=== PATIENT | male | born 1960 | race African-American/Black ===

== ENCOUNTER 2017-07-29 12:00 | Inpatient (IN) | payer BC ==
[2017-07-29 12:44] VITALS: BMI 29.3
--- NOTE | 2017-07-29 12:59 | HP ---
CIWA Score - CIWA Score Nausea/Vomitin Muscle Tremors: 3 Anxiety: 3 Agitation: 3 Paroxysmal Sweats: 2 Orientation: 0-Oriented Tacttile Disturbances: 2-Mild Itch/Numbness/Burn Auditory Disturbances: 2-Mild Harshness/Frighten Visual Disturbances: 1-Very Mild Sensitivity Headache: 2-Mild CIWA-Ar Total Score: 21 Admission ROS BHS - HPI Chief Complaint: I NEED HELP TO STOP DRINKING ALCOHOL AND COCAINE Allergies/Adverse Reactions: Allergies Allergy/AdvReac Type Severity Reaction Status Date / Time No Known Allergies Allergy Verified 07/29/17 12:52 History of Present Illness: THIS 57 YEARS OLD MALE WITH ALCOHOL AND COCAINE DEPENDENCE,WITHDRAWAL SYMPTOM, SEEKING DETOX,LAST TREATMENT [facility] 01/01/16 TO 01/05/16 HTN,TYPE 2 DM,LOW BACK PAIN,HYPERCHOLESTEROLEMIA DEPRESSION NICOTINE DEPENDENCE LONGEST PERIOD OF SOBRIETY 2 YEARS S/P BUNION SURGERY OF RIGHT FOOT IN 06/13 - Ebola screening Have you traveled outside of the country in the last 21 days: No (N) Have you had contact with anyone from an Ebola affected area: No Have you been sick,other than usual withdrawal symptoms: No Do you have a fever: No - Review of Systems Constitutional: Loss of Appetite, Malaise, Night Sweats, Changes in sleep, Weakness, Unintentional Wgt. Loss EENT: reports: Nose Congestion Respiratory: reports: No Symptoms reported Cardiac: reports: No Symptoms Reported GI: reports: Diarrhea, Nausea, Vomiting, Abdominal cramping : reports: No Symptoms Reported Musculoskeletal: reports: Back Pain, Muscle Pain Integumentary: reports: Dryness Neuro: reports: Headache, Tremors Endocrine: reports: No Symptoms Reported Hematology: reports: No Symptoms Reported Psychiatric: reports: Depressed Patient History - Patient Medical History Hx Anemia: No Hx Asthma: No Hx Chronic Obstructive Pulmonary Disease (COPD): No Hx Cancer: No Hx Cardiac Disorders: No Hx Congestive Heart Failure: No Hx Hypertension: Yes (LISINOPRIL & HCTZ) Hx Hypercholesterolemia: Yes (NO MEDS) Hx Pacemaker: No HX Cerebrovascular Accident: No Hx Seizures: No Hx Dementia: No Hx Diabetes: Yes (Type II) Hx Gastrointestinal Disorders: No Hx Liver Disease: No Hx Genitourinary Disorders: No Hx Sexually Transmitted Disorders: No Hx Renal Disease (ESRD): No Hx Thyroid Disease: No Hx Human Immunodeficiency Virus (HIV): No Hx Hepatitis C: No Hx Depression: No Hx Suicide Attempt: No Hx Bipolar Disorder: No Hx Schizophrenia: No Other Medical History: NO SUICIDAL,NO HOMICIDAL - Patient Surgical History Past Surgical History: Yes Other Surgical History: L foot bunionectomy Anesthesia Reaction: No - PPD History Previous Implant?: Yes Documented Results: Negative w/o proof Implanted On Prior R Admission?: Yes Date: 01/03/16 PPD to be Administered?: Yes - Smoking Cessation Smoking history: Current every day smoker Have you smoked in the past 12 months: Yes Aproximately how many cigarettes per day: 20 Hx Chewing Tobacco Use: No Initiated information on smoking cessation: Yes 'Breaking Loose' booklet given: 07/29/17 - Substance & Tx. History Hx Alcohol Use: Yes Hx Substance Use: Yes Substance Use Type: Alcohol, Cocaine Hx Substance Use Treatment: Yes (01/01/16 TO 01/05/16) - Substances Abused Alcohol Route: Oral Frequency: Daily Amount used: 1 QT OF VODKA Age of first use: 24 Date of Last Use: 07/29/17 Cocaine Route: Inhalation Frequency: Daily Amount used: $100 Age of first use: 24 Date of Last Use: 07/28/17 Family Disease History - Family Disease History Family Disease History: Heart Disease: Father (HTN), Mother (HTN), Brother (HTN) Admission Physical Exam S - Vital Signs Vital Signs: Vital Signs - 24 hr 07/29/17 12:41 Temperature 97.2 F L Pulse Rate 92 H Respiratory 20 Rate Blood Pressure 130/74 - Physical General Appearance: Yes: Moderate Distress, Tremorous, Irritable, Sweating, Anxious HEENTM: Yes: SHAE, Nasal Congestion Respiratory: Yes: Lungs Clear, Normal Breath Sounds, No Respiratory Distress Neck: Yes: Within Normal Limits, Supple, Trachea in good position Breast: Yes: Within Normal Limits Cardiology: Yes: Within Normal Limits, Regular Rhythm, Regular Rate, S1, S2 Abdominal: Yes: Within Normal Limits, Normal Bowel Sounds, Non Tender, Flat, Soft Genitourinary: Yes: Within Normal Limits Back: Yes: Muscle Spasm Musculoskeletal: Yes: full range of Motion, Back pain, Muscle Pain Extremities: Yes: Within Normal Limits, Normal Range of Motion, Tremors, Other ( S/P BUNION SURGERY OF RIGHT FOOT) 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 NML intact, Alert, Motor Strength 5/5 Integumentary: Yes: Dry Lymphatic: Yes: Within Normal Limits - Diagnostic (1) Alcohol dependence with uncomplicated withdrawal Current Visit: Yes Status: Acute (2) Cocaine dependence, uncomplicated Current Visit: Yes Status: Acute (3) HTN (hypertension) Current Visit: No Status: Acute Qualifiers: Hypertension type: essential hypertension Qualified Code(s): I10 - Essential (primary) hypertension (4) Type II diabetes mellitus Current Visit: No Status: Acute Qualifiers: Diabetes mellitus complication status: without complication Diabetes mellitus halfway insulin use: without halfway use Qualified Code(s): E11.9 - Type 2 diabetes mellitus without complications (5) Weight loss Current Visit: Yes Status: Acute (6) Depression Current Visit: Yes Status: Acute (7) Nicotine dependence Current Visit: Yes Status: Chronic Cleared for Admission S - Detox or Rehab [facility] Level of Care: Medically Managed Detox Regimen/Protocol: Librium S Breath Alcohol Content Breath Alcohol Content: 0.009 Urine Drug Screen - Results Drug Screen Negative: No Urine Drug Screen Results: CHRIS-Cocaine
[2017-07-29] MEDS ORDERED: IBUPROFEN 400 MG TABLET (FP) PO PRN (13:15)
[2017-07-29] MEDS ORDERED: guaiFENesin/D-METHORPHAN HB 10 ML UNIT-DOSE CUPS PO PRN (13:15)
[2017-07-29] MEDS ORDERED: chlordiazePOXIDE HCL 25 MG CAPSULE PO PRN (13:15)
[2017-07-29] MEDS ORDERED: MENTHOL/PHENOL 1 EACH UD MM PRN (13:15)
[2017-07-29] MEDS ORDERED: P-EPHED 60MG/TRIPROLIDI 2.5MG TABLET PO PRN (13:15)
[2017-07-29] MEDS ORDERED: MAGNESIUM CITRATE 300 ML BOTTLE PO PRN (13:15)
[2017-07-29] MEDS ORDERED: MAGNESIUM HYDROX 2400MG/30ML ORAL SUSPENSION 30 ML CUP PO PRN (13:15)
[2017-07-29] MEDS ORDERED: MAG HYDROX/AL HYDROX/SIMETH 30 ML UNIT-DOSE CUP PO PRN (13:15)
[2017-07-29] MEDS ORDERED: NICOTINE POLACRILEX 2 MG GUM BUC PRN (13:15)
[2017-07-29] MEDS ORDERED: LOPERAMIDE HCL 2 MG CAPSULE PO PRN (13:15)
[2017-07-29] MEDS ORDERED: hydrOXYzine PAMOATE 50 MG CAPSULE (FP) PO PRN (13:15)
[2017-07-29] MEDS ORDERED: ACETAMINOPHEN 325 MG TABLET (FP) PO PRN (13:15)
[2017-07-29] MEDS ORDERED: chlordiazePOXIDE HCL 25 MG CAPSULE PO ONE (13:35)
[2017-07-29] MEDS: GABAPENTIN 300 MG CAPSULE (FP) PO SCH ×2 (14:36→22:21)
[2017-07-29] MEDS: NICOTINE 21 MG/24 HOURS TOPICAL PATCH TD SCH (14:37)
--- NOTE | 2017-07-29 15:47 | CONSULT ---
[facility] Psychiatric Consult - Data Date of interview: 07/29/17 Admission source: [facility] Identifying data: Pt. is a 57 year old male, father of three, and currently unemployed. This is patient's first admission to [facility]. Pt. admitted to for alcohol and cocaine dependence. Substance Abuse History: Following information confirmed with Mr. Hu: Smoking Cessation. Smoking history: Current every day smoker. Have you smoked in the past 12 months: Yes. Aproximately how many cigarettes per day: 20. Hx Chewing Tobacco Use: No. Initiated information on smoking cessation: Yes. ' Breaking Loose' booklet given: 07/29/17. - Substance & Tx. History. Hx Alcohol Use: Yes. Hx Substance Use: Yes. Substance Use Type: Alcohol, Cocaine. Hx Substance Use Treatment: Yes (01/01/16 TO 01/05/16). - Substances Abused. Alcohol. Route: Oral. Frequency: Daily. Amount used: 1 QT OF VODKA. Age of first use: 24. Date of Last Use: 07/29/17. Cocaine. Route: Inhalation. Frequency: Daily. Amount used: $100. Age of first use: 24. Date of Last Use: 07/28/17 Medical History: Hypertension, hypercholesterolemia, diabetes. Psychiatric History: Pt. denies h/o psychiatric hospitalizations and suicide attempts. Pt reports h/o outpatient care in 2017 at [facility] outpatient care services but reports not seeing a psychiatrist in approximately six months. States he was prescribed medication for his "anxiety and depression" but is unable to recall the medications. Pt. denies suicidial and homicidal ideation. Physical/Sexual Abuse/Trauma History: Denies. Mental Status Exam - Mental Status Exam Alert and Oriented to: Time, Place, Person Cognitive Function: Good Patient Appearance: Well Groomed Mood: Hopeful Affect: Appropriate Patient Behavior: Appropriate, Cooperative Speech Pattern: Clear, Appropriate Voice Loudness: Normal Thought Process: Goal Oriented Thought Disorder: Not Present Hallucinations: Denies Suicidal Ideation: Denies Homicidal Ideation: Denies Insight/Judgement: Poor Sleep: Poorly Appetite: Fair Muscle strength/Tone: Normal Gait/Station: Normal Psychiatric Findings - Problem List ([place] 1, 2,3) (1) Insomnia Current Visit: Yes Status: Acute (2) Nicotine dependence Current Visit: Yes Status: Chronic (3) Alcohol dependence with uncomplicated withdrawal Current Visit: Yes Status: Acute (4) Cocaine dependence, uncomplicated Current Visit: Yes Status: Acute - Initial Treatment Plan Initial Treatment Plan: Psychoeducation provided. Detoxification in progress. Ambien 10mg qhs prn ordered for insomnia. Benefits and side effects (sleep walking) discussed. Verbal consent given. Will continue to monitor patient.
[2017-07-29] MEDS: chlordiazePOXIDE HCL 25 MG CAPSULE PO SCH ×2 (17:34→22:20)
[2017-07-29 18:11] LABS: URINE APPEARANCE CLEAR; URINE BILIRUBIN NEGATIVE (NEGATIVE); URINE BLOOD NEGATIVE (NEGATIVE); URINE COLOR STRAW; URINE GLUCOSE (UA) NEGATIVE (NEGATIVE); URINE KETONE NEGATIVE (NEGATIVE); URINE LEUK ESTERASE NEGATIVE (NEGATIVE); URINE NITRITE NEGATIVE (NEGATIVE); URINE PROTEIN NEGATIVE (NEGATIVE); URINE UROBILINOGEN NEGATIVE mg/dL (0.2-1.0)
[2017-07-29] MEDS: THIAMINE HCL 100 MG TABLET (FP) PO SCH (22:21)
[2017-07-29] MEDS: ZOLPIDEM TARTRATE 10 MG TABLET (PARK CARE ONLY) PO PRN (22:22)
[2017-07-30] MEDS: chlordiazePOXIDE HCL 25 MG CAPSULE PO SCH ×4 (05:06→22:05)
[2017-07-30] MEDS: GABAPENTIN 300 MG CAPSULE (FP) PO SCH ×3 (05:07→22:05)
[2017-07-30 09:56] LABS: HEMATOCRIT 46.8 % (35.4-49); MCH 30.5 pg (25.7-33.7); MCHC 32.1 g/dl (32.0-35.9); MEAN PLT VOLUME 8.7 fl (7.5-11.1); PLATELET COUNT 239 K/MM3 (134-434); RBC 4.93 M/mm3 (4.00-5.60); RDW 14.3 % (11.9-15.9); WHITE BLOOD COUNT 4.2 K/mm3 (4.0-10.0)
[2017-07-30 10:13] LABS: ALBUMIN 3.9 g/dl (3.4-5.0); ANION GAP 7 (8-16); BLOOD UREA NITROGEN 11 mg/dL (7-18); CALCIUM 8.6 mg/dL (8.5-10.1); CHLORIDE 103 mmol/L (98-107); CO2 29 mmol/L (21-32); GLUCOSE,RANDOM 109 mg/dL (74-106); POTASSIUM 3.7 mmol/L (3.5-5.1); SODIUM 139 mmol/L (136-145)
[2017-07-30 10:18] LABS: ALK PHOS 70 U/L (45-117); BILIRUBIN,TOTAL 0.8 mg/dL (0.2-1.0); CREATININE 1.1 mg/dL (0.7-1.3); SGOT/AST 20 U/L (15-37); SGPT/ALT 21 U/L (12-78); TOT PROT 7.4 g/dl (6.4-8.2)
--- NOTE | 2017-07-30 10:18 | EKG ---
Test Reason : Blood Pressure : / mmHG Vent. Rate : 077 BPM Atrial Rate : 077 BPM P-R Int : 132 ms QRS Dur : 088 ms QT Int : 380 ms P-R-T Axes : 046 040 -10 degrees QTc Int : 430 ms NORMAL SINUS RHYTHM NONSPECIFIC T WAVE ABNORMALITY ABNORMAL ECG NO PREVIOUS ECGS AVAILABLE Confirmed by JR BLANCHARD MD ([id number]) on 07/30/2017 10:17:37 AM Referred By: Confirmed By:JR BLANCHARD MD
[2017-07-30] MEDS: OXYMETAZOLINE 0.05% NASAL SOLUTION 15 ML BOTTLE NS PRN (10:37)
[2017-07-30] MEDS: PRENATAL VITAMINS W/ FOLIC ACID TABLET (FP) PO SCH (10:37)
[2017-07-30] MEDS: CELECOXIB 200 MG CAPSULE PO SCH (10:37)
[2017-07-30] MEDS: ASPIRIN 81 MG CHEWABLE TABLETS PO SCH (10:37)
[2017-07-30] MEDS: LISINOPRIL 20 MG TABLET (FP) PO SCH (10:37)
[2017-07-30] MEDS: HYDROCHLOROTHIAZIDE 25 MG TABLET (FP) PO SCH (10:37)
[2017-07-30] MEDS: NICOTINE 21 MG/24 HOURS TOPICAL PATCH TD SCH (10:38)
--- NOTE | 2017-07-30 14:51 | PN ---
S CIWA - CIWA Score Nausea/Vomitin-No Nausea/No Vomiting Muscle Tremors: 4-Moderate,w/Arms Extend Anxiety: 3 Agitation: 1-Slight > Activity Paroxysmal Sweats: 3 Orientation: 0-Oriented Tacttile Disturbances: 2-Mild Itch/Numbness/Burn Auditory Disturbances: 0-None Visual Disturbances: 0-None Headache: 3-Moderate CIWA-Ar Total Score: 16 BHS Progress Note (SOAP) Subjective: Tremors, H/A, Body Aches, Sweating. Objective: PT. A & O X 3, OBSERVED AMBULATING ON UNIT. NO ACUTE DISTRESS. PT. DENIES CHEST PAIN. 07/30/17 14:50 Vital Signs Temperature 96.4 F L 07/30/17 13:13 Pulse Rate 80 07/30/17 13:13 Respiratory Rate 18 07/30/17 13:13 Blood Pressure 124/81 07/30/17 13:13 O2 Sat by Pulse Oximetry (%) Laboratory Tests 07/29/17 07/29/17 07/29/17 13:05 16:25 17:00 WBC RBC Hgb Hct MCV MCH MCHC RDW Plt Count MPV Sodium Potassium Chloride Carbon Dioxide Anion Gap BUN Creatinine Creat Clearance w eGFR POC Glucometer 128 144 Random Glucose Calcium Total Bilirubin AST ALT Alkaline Phosphatase Total Protein Albumin Urine Color Straw Urine Appearance Clear Urine pH 6.0 Ur Specific [place] 1.009 Urine Protein Negative Urine Glucose (UA) Negative Urine Ketones Negative Urine Blood Negative Urine Nitrite Negative Urine Bilirubin Negative Urine Urobilinogen Negative Ur Leukocyte Esterase Negative RPR Titer 07/30/17 07/30/17 07/30/17 05:08 06:00 06:00 WBC 4.2 RBC 4.93 Hgb 15.0 Hct 46.8 MCV 95.0 MCH 30.5 MCHC 32.1 RDW 14.3 Plt Count 239 MPV 8.7 Sodium 139 Potassium 3.7 Chloride 103 Carbon Dioxide 29 Anion Gap 7 L BUN 11 Creatinine 1.1 Creat Clearance w eGFR > 60 POC Glucometer 110 Random Glucose 109 H Calcium 8.6 Total Bilirubin 0.8 D AST 20 D ALT 21 Alkaline Phosphatase 70 D Total Protein 7.4 Albumin 3.9 D Urine Color Urine Appearance Urine pH Ur Specific [place] Urine Protein Urine Glucose (UA) Urine Ketones Urine Blood Urine Nitrite Urine Bilirubin Urine Urobilinogen Ur Leukocyte Esterase RPR Titer 07/30/17 06:00 WBC RBC Hgb Hct MCV MCH MCHC RDW Plt Count MPV Sodium Potassium Chloride Carbon Dioxide Anion Gap BUN Creatinine Creat Clearance w eGFR POC Glucometer Random Glucose Calcium Total Bilirubin AST ALT Alkaline Phosphatase Total Protein Albumin Urine Color Urine Appearance Urine pH Ur Specific [place] Urine Protein Urine Glucose (UA) Urine Ketones Urine Blood Urine Nitrite Urine Bilirubin Urine Urobilinogen Ur Leukocyte Esterase RPR Titer Nonreactive LABS NOTED. 07/30/17 14:50 Assessment: 07/30/17 14:50 WITHDRAWAL SYMPTOMS. Plan: CONTINUE DETOX.
[2017-07-30] MEDS: THIAMINE HCL 100 MG TABLET (FP) PO SCH (22:05)
[2017-07-30] MEDS: ZOLPIDEM TARTRATE 10 MG TABLET (PARK CARE ONLY) PO PRN (22:05)
[2017-07-31] MEDS: GABAPENTIN 300 MG CAPSULE (FP) PO SCH ×3 (05:01→22:06)
[2017-07-31] MEDS: chlordiazePOXIDE HCL 25 MG CAPSULE PO SCH ×2 (05:01→10:05)
[2017-07-31] MEDS: LISINOPRIL 20 MG TABLET (FP) PO SCH (10:05)
[2017-07-31] MEDS: ASPIRIN 81 MG CHEWABLE TABLETS PO SCH (10:05)
[2017-07-31] MEDS: HYDROCHLOROTHIAZIDE 25 MG TABLET (FP) PO SCH (10:05)
[2017-07-31] MEDS: PRENATAL VITAMINS W/ FOLIC ACID TABLET (FP) PO SCH (10:05)
[2017-07-31] MEDS: NICOTINE 21 MG/24 HOURS TOPICAL PATCH TD SCH (10:06)
[2017-07-31] MEDS: CELECOXIB 200 MG CAPSULE PO SCH (10:06)
[2017-07-31] MEDS: OXYMETAZOLINE 0.05% NASAL SOLUTION 15 ML BOTTLE NS PRN (15:22)
--- NOTE | 2017-07-31 15:38 | PN ---
[facility] CIWA - CIWA Score Nausea/Vomitin-No Nausea/No Vomiting Muscle Tremors: 2 Anxiety: 3 Agitation: 3 Paroxysmal Sweats: 3 Orientation: 0-Oriented Tacttile Disturbances: 0-None Auditory Disturbances: 2-Mild Harshness/Frighten Visual Disturbances: 2-Mild Sensitivity Headache: 0-None Present CIWA-Ar Total Score: 15 S Progress Note (SOAP) Subjective: Sweating, Tremors, Fatigue, Interrupted Sleep. Objective: PT. A & O X 3, OBSERVED AMBULATING ON UNIT. NO ACUTE DISTRESS. 07/31/17 15:36 Vital Signs Temperature 97.6 F 07/31/17 13:28 Pulse Rate 80 07/31/17 13:28 Respiratory Rate 18 07/31/17 13:28 Blood Pressure 123/87 07/31/17 13:28 O2 Sat by Pulse Oximetry (%) Laboratory Tests 07/29/17 07/29/17 07/29/17 13:05 16:25 17:00 WBC RBC Hgb Hct MCV MCH MCHC RDW Plt Count MPV Sodium Potassium Chloride Carbon Dioxide Anion Gap BUN Creatinine Creat Clearance w eGFR POC Glucometer 128 144 Random Glucose Calcium Total Bilirubin AST ALT Alkaline Phosphatase Total Protein Albumin Urine Color Straw Urine Appearance Clear Urine pH 6.0 Ur Specific [place] 1.009 Urine Protein Negative Urine Glucose (UA) Negative Urine Ketones Negative Urine Blood Negative Urine Nitrite Negative Urine Bilirubin Negative Urine Urobilinogen Negative Ur Leukocyte Esterase Negative RPR Titer 07/30/17 07/30/17 07/30/17 05:08 06:00 06:00 WBC 4.2 RBC 4.93 Hgb 15.0 Hct 46.8 MCV 95.0 MCH 30.5 MCHC 32.1 RDW 14.3 Plt Count 239 MPV 8.7 Sodium 139 Potassium 3.7 Chloride 103 Carbon Dioxide 29 Anion Gap 7 L BUN 11 Creatinine 1.1 Creat Clearance w eGFR > 60 POC Glucometer 110 Random Glucose 109 H Calcium 8.6 Total Bilirubin 0.8 D AST 20 D ALT 21 Alkaline Phosphatase 70 D Total Protein 7.4 Albumin 3.9 D Urine Color Urine Appearance Urine pH Ur Specific [place] Urine Protein Urine Glucose (UA) Urine Ketones Urine Blood Urine Nitrite Urine Bilirubin Urine Urobilinogen Ur Leukocyte Esterase RPR Titer 07/30/17 07/30/17 07/31/17 06:00 16:14 05:00 WBC RBC Hgb Hct MCV MCH MCHC RDW Plt Count MPV Sodium Potassium Chloride Carbon Dioxide Anion Gap BUN Creatinine Creat Clearance w eGFR POC Glucometer 130 110 Random Glucose Calcium Total Bilirubin AST ALT Alkaline Phosphatase Total Protein Albumin Urine Color Urine Appearance Urine pH Ur Specific [place] Urine Protein Urine Glucose (UA) Urine Ketones Urine Blood Urine Nitrite Urine Bilirubin Urine Urobilinogen Ur Leukocyte Esterase RPR Titer Nonreactive LABS NOTED. Assessment: 07/31/17 15:37 WITHDRAWAL SYMPTOMS. Plan: CONTINUE DETOX.
[2017-07-31] MEDS: chlordiazePOXIDE 5 MG CAPSULE PO SCH ×2 (17:45→22:07)
[2017-07-31] MEDS: THIAMINE HCL 100 MG TABLET (FP) PO SCH (22:06)
[2017-08-01] MEDS: GABAPENTIN 300 MG CAPSULE (FP) PO SCH ×3 (05:34→22:11)
[2017-08-01] MEDS: chlordiazePOXIDE 5 MG CAPSULE PO SCH ×2 (05:34→10:27)
[2017-08-01] MEDS: ASPIRIN 81 MG CHEWABLE TABLETS PO SCH (10:26)
[2017-08-01] MEDS: PRENATAL VITAMINS W/ FOLIC ACID TABLET (FP) PO SCH (10:27)
[2017-08-01] MEDS: NICOTINE 21 MG/24 HOURS TOPICAL PATCH TD SCH (10:27)
[2017-08-01] MEDS: LISINOPRIL 20 MG TABLET (FP) PO SCH (10:27)
[2017-08-01] MEDS: CELECOXIB 200 MG CAPSULE PO SCH (10:27)
[2017-08-01] MEDS: HYDROCHLOROTHIAZIDE 25 MG TABLET (FP) PO SCH (10:27)
--- NOTE | 2017-08-01 14:41 | PN ---
BHS Progress Note (SOAP) Subjective: Diarrhea, Body Aches, Tremors, Interrupted Sleep. Objective: PT A & O X 3, OBSERVED AMBULATING ON UNIT. NO ACUTE DISTRESS. 08/01/17 14:40 Laboratory Tests 07/29/17 07/29/17 07/29/17 13:05 16:25 17:00 WBC RBC Hgb Hct MCV MCH MCHC RDW Plt Count MPV Sodium Potassium Chloride Carbon Dioxide Anion Gap BUN Creatinine Creat Clearance w eGFR POC Glucometer 128 144 Random Glucose Calcium Total Bilirubin AST ALT Alkaline Phosphatase Total Protein Albumin Urine Color Straw Urine Appearance Clear Urine pH 6.0 Ur Specific [place] 1.009 Urine Protein Negative Urine Glucose (UA) Negative Urine Ketones Negative Urine Blood Negative Urine Nitrite Negative Urine Bilirubin Negative Urine Urobilinogen Negative Ur Leukocyte Esterase Negative RPR Titer 07/30/17 07/30/17 07/30/17 05:08 06:00 06:00 WBC 4.2 RBC 4.93 Hgb 15.0 Hct 46.8 MCV 95.0 MCH 30.5 MCHC 32.1 RDW 14.3 Plt Count 239 MPV 8.7 Sodium 139 Potassium 3.7 Chloride 103 Carbon Dioxide 29 Anion Gap 7 L BUN 11 Creatinine 1.1 Creat Clearance w eGFR > 60 POC Glucometer 110 Random Glucose 109 H Calcium 8.6 Total Bilirubin 0.8 D AST 20 D ALT 21 Alkaline Phosphatase 70 D Total Protein 7.4 Albumin 3.9 D Urine Color Urine Appearance Urine pH Ur Specific [place] Urine Protein Urine Glucose (UA) Urine Ketones Urine Blood Urine Nitrite Urine Bilirubin Urine Urobilinogen Ur Leukocyte Esterase RPR Titer 07/30/17 07/30/17 07/31/17 06:00 16:14 05:00 WBC RBC Hgb Hct MCV MCH MCHC RDW Plt Count MPV Sodium Potassium Chloride Carbon Dioxide Anion Gap BUN Creatinine Creat Clearance w eGFR POC Glucometer 130 110 Random Glucose Calcium Total Bilirubin AST ALT Alkaline Phosphatase Total Protein Albumin Urine Color Urine Appearance Urine pH Ur Specific [place] Urine Protein Urine Glucose (UA) Urine Ketones Urine Blood Urine Nitrite Urine Bilirubin Urine Urobilinogen Ur Leukocyte Esterase RPR Titer Nonreactive 07/31/17 15:49 WBC RBC Hgb Hct MCV MCH MCHC RDW Plt Count MPV Sodium Potassium Chloride Carbon Dioxide Anion Gap BUN Creatinine Creat Clearance w eGFR POC Glucometer 144 Random Glucose Calcium Total Bilirubin AST ALT Alkaline Phosphatase Total Protein Albumin Urine Color Urine Appearance Urine pH Ur Specific [place] Urine Protein Urine Glucose (UA) Urine Ketones Urine Blood Urine Nitrite Urine Bilirubin Urine Urobilinogen Ur Leukocyte Esterase RPR Titer LABS NOTED. Assessment: 08/01/17 14:40 WITHDRAWAL SYMPTOMS. Plan: CONTINUE DETOX.
[2017-08-01] MEDS: chlordiazePOXIDE HCL 10 MG CAPSULE PO SCH ×2 (17:47→22:10)
[2017-08-01] MEDS: OXYMETAZOLINE 0.05% NASAL SOLUTION 15 ML BOTTLE NS PRN (17:48)
[2017-08-01] MEDS: THIAMINE HCL 100 MG TABLET (FP) PO SCH (22:12)
[2017-08-02] MEDS: chlordiazePOXIDE HCL 10 MG CAPSULE PO SCH (05:36)
[2017-08-02] MEDS: GABAPENTIN 300 MG CAPSULE (FP) PO SCH (05:36)
[2017-08-02 07:04] VITALS: BP 135/88
[2017-08-02 09:20] VITALS: PULSE 78; TEMP 97.2
[2017-08-02] MEDS: CELECOXIB 200 MG CAPSULE PO SCH (09:22)
[2017-08-02] MEDS: PRENATAL VITAMINS W/ FOLIC ACID TABLET (FP) PO SCH (09:22)
[2017-08-02] MEDS: HYDROCHLOROTHIAZIDE 25 MG TABLET (FP) PO SCH (09:23)
[2017-08-02] MEDS: ASPIRIN 81 MG CHEWABLE TABLETS PO SCH (09:24)
[2017-08-02] MEDS: LISINOPRIL 20 MG TABLET (FP) PO SCH (09:24)
[2017-08-02] MEDS: NICOTINE 21 MG/24 HOURS TOPICAL PATCH TD SCH (09:25)
--- NOTE | 2017-08-02 09:32 | DS ---
[facility] Detox Discharge Summary Admission Date: 07/29/17 Discharge Date: 08/02/17 - History Present History: Alcohol Dependence, Cocaine Dependence Additional Comments: DETOX COMPLETED. ALERT O X 3. NAD. PT REPORTS HAS A PRIMARY CARE PROVIDER DR BLADIMIR BARRERA/[facility]. Pertinent Past History: DM HTN - Physical Exam Results Vital Signs: Vital Signs Temperature 97.2 F L 08/02/17 09:19 Pulse Rate 78 08/02/17 09:19 Respiratory Rate 18 08/02/17 09:19 Blood Pressure 135/88 08/02/17 09:19 O2 Sat by Pulse Oximetry (%) Pertinent Admission Physical Exam Findings: WITHDRAWAL SX Laboratory Last Values WBC 4.2 K/mm3 (4.0-10.0) 07/30/17 06:00 RBC 4.93 M/mm3 (4.00-5.60) 07/30/17 06:00 Hgb 15.0 GM/dL (11.7-16.9) 07/30/17 06:00 Hct 46.8 % (35.4-49) 07/30/17 06:00 MCV 95.0 fl (80-96) 07/30/17 06:00 MCH 30.5 pg (25.7-33.7) 07/30/17 06:00 MCHC 32.1 g/dl (32.0-35.9) 07/30/17 06:00 RDW 14.3 % (11.9-15.9) 07/30/17 06:00 Plt Count 239 K/MM3 (134-434) 07/30/17 06:00 MPV 8.7 fl (7.5-11.1) 07/30/17 06:00 Sodium 139 mmol/L (136-145) 07/30/17 06:00 Potassium 3.7 mmol/L (3.5-5.1) 07/30/17 06:00 Chloride 103 mmol/L (98-107) 07/30/17 06:00 Carbon Dioxide 29 mmol/L (21-32) 07/30/17 06:00 Anion Gap 7 (8-16) L 07/30/17 06:00 BUN 11 mg/dL (7-18) 07/30/17 06:00 Creatinine 1.1 mg/dL (0.7-1.3) 07/30/17 06:00 Creat Clearance w eGFR > 60 (>60) 07/30/17 06:00 POC Glucometer 116 UNITS (80-120) 08/02/17 05:38 Random Glucose 109 mg/dL (74-106) H 07/30/17 06:00 Calcium 8.6 mg/dL (8.5-10.1) 07/30/17 06:00 Total Bilirubin 0.8 mg/dL (0.2-1.0) D 07/30/17 06:00 AST 20 U/L (15-37) D 07/30/17 06:00 ALT 21 U/L (12-78) 07/30/17 06:00 Alkaline Phosphatase 70 U/L (45-117) D 07/30/17 06:00 Total Protein 7.4 g/dl (6.4-8.2) 07/30/17 06:00 Albumin 3.9 g/dl (3.4-5.0) D 07/30/17 06:00 Urine Color Straw 07/29/17 17:00 Urine Appearance Clear 07/29/17 17:00 Urine pH 6.0 (5.0-8.0) 07/29/17 17:00 Ur Specific [place] 1.009 (1.001-1.035) 07/29/17 17:00 Urine Protein Negative (NEGATIVE) 07/29/17 17:00 Urine Glucose (UA) Negative (NEGATIVE) 07/29/17 17:00 Urine Ketones Negative (NEGATIVE) 07/29/17 17:00 Urine Blood Negative (NEGATIVE) 07/29/17 17:00 Urine Nitrite Negative (NEGATIVE) 07/29/17 17:00 Urine Bilirubin Negative (NEGATIVE) 07/29/17 17:00 Urine Urobilinogen Negative mg/dL (0.2-1.0) 07/29/17 17:00 Ur Leukocyte Esterase Negative (NEGATIVE) 07/29/17 17:00 RPR Titer Nonreactive (NONREACTIVE) 07/30/17 06:00 - Treatment Hospital Course: Detox Protocol Followed, Detoxed Safely, Responded well, Discharged Condition Good - Medication Discharge Medications: Ambulatory Orders Metformin HCl [Glucophage -] 850 mg PO BID 01/01/16 Acetaminophen [Tylenol -] 500 mg PO Q6H PRN 07/29/17 Celecoxib [Celebrex -] 200 mg PO DAILY 07/29/17 Gabapentin [Neurontin -] 300 mg PO Q8H 07/29/17 Aspirin [ASA -] 81 mg PO DAILY #30 tab.chew 08/01/17 Lisinopril [Prinivil] 20 mg PO DAILY #30 tablet 08/01/17 Hydrochlorothiazide [Hctz -] 25 mg PO DAILY #30 tablet 08/02/17 - Diagnosis (1) Alcohol dependence with uncomplicated withdrawal Current Visit: Yes Status: Acute (2) Cocaine dependence, uncomplicated Current Visit: Yes Status: Acute (3) Nicotine dependence Current Visit: Yes Status: Acute Qualifiers: Nicotine product type: cigarettes Substance use status: in withdrawal Qualified Code(s): F17.213 - Nicotine dependence, cigarettes, with withdrawal (4) HTN (hypertension) Current Visit: Yes Status: Chronic Qualifiers: Hypertension type: essential hypertension Qualified Code(s): I10 - Essential (primary) hypertension (5) Type II diabetes mellitus Current Visit: Yes Status: Chronic Qualifiers: Diabetes mellitus complication status: without complication Diabetes mellitus custodial insulin use: without custodial use Qualified Code(s): E11.9 - Type 2 diabetes mellitus without complications - AMA Did Patient Leave Against Medical Advice: No
== END 2017-08-02 09:33 | disposition home or self-care (01) | DRG 774 ==
LOC: YASAS 12:00 → Y3N 13:13
PROVIDERS: ADMIT Internal Medicine; ATTEND Internal Medicine
PROC: HZ2ZZZZ Detoxification Services for Substance Abuse Treatment (ICD-10-PCS; principal; 2017-07-29)
DX: F10.230 Alcohol dependence with withdrawal, uncomplicated (principal); F14.20 Cocaine dependence, uncomplicated; F17.213 Nicotine dependence, cigarettes, with withdrawal; F32.9 Major depressive disorder, single episode, unspecified; I10 Essential (primary) hypertension; E11.9 Type 2 diabetes mellitus without complications; E78.00 Pure hypercholesterolemia, unspecified; G47.00 Insomnia, unspecified; Z79.82 Long term (current) use of aspirin; Z79.84 Long term (current) use of oral hypoglycemic drugs; Z87.898 Personal history of other specified conditions
CPT/HCPCS: 36415; 80053; 81003; 82962; 85027; 86593; 93005; 93010

== ENCOUNTER 2017-10-25 11:37 | Inpatient (IN) | payer BC ==
[2017-10-25 12:17] VITALS: BMI 28.3
--- NOTE | 2017-10-25 14:08 | HP ---
CIWA Score - CIWA Score Nausea/Vomitin-Mild Nausea/No Vomiting Muscle Tremors: 4-Moderate,w/Arms Extend Anxiety: 4-Mod. Anxious/Guarded Agitation: 4-Moderately Restless Paroxysmal Sweats: 1-Minimal Palms Moist Orientation: 0-Oriented Tacttile Disturbances: 1-Very Mild Itch/Numbness Auditory Disturbances: 0-None Visual Disturbances: 0-None Headache: 0-None Present CIWA-Ar Total Score: 15 Admission ROS BHS - HPI Chief Complaint: withdrawal sx alcohol dependence patient is going to have left toe surgery o 11/05/17 Allergies/Adverse Reactions: Allergies Allergy/AdvReac Type Severity Reaction Status Date / Time No Known Allergies Allergy Verified 10/25/17 13:56 History of Present Illness: 57 years old male with long history of alcohol nicotine dependence has hypertension diabetes ii nasal congestion chronic back pain and depression and anxiety is admitted to detox Exam Limitations: No Limitations - Ebola screening Have you traveled outside of the country in the last 21 days: No Have you had contact with anyone from an Ebola affected area: No Have you been sick,other than usual withdrawal symptoms: No Do you have a fever: No - Review of Systems Constitutional: Changes in sleep, Weight Stable EENT: reports: No Symptoms Reported Respiratory: reports: No Symptoms reported Cardiac: reports: No Symptoms Reported GI: reports: Nausea, Poor Fluid Intake, Abdominal cramping : reports: No Symptoms Reported Musculoskeletal: reports: Back Pain (chronic lower back pain) Integumentary: reports: No Symptoms Reported Neuro: reports: Tremors Endocrine: reports: Increased Urine, Other (bgm 116 upon admission) Hematology: reports: No Symptoms Reported Psychiatric: reports: Judgement Intact, Orientated x3, Anxious, Depressed Other Systems: Reviewed and Negative Patient History - Patient Medical History Hx Anemia: No Hx Asthma: No Hx Chronic Obstructive Pulmonary Disease (COPD): No Hx Cancer: No Hx Cardiac Disorders: No Hx Congestive Heart Failure: No Hx Hypertension: Yes (LISINOPRIL & HCTZ) Hx Hypercholesterolemia: Yes (NO MEDS) Hx Pacemaker: No HX Cerebrovascular Accident: No Hx Seizures: No Hx Dementia: No Hx Diabetes: Yes (Type II) Hx Gastrointestinal Disorders: No Hx Liver Disease: No Hx Genitourinary Disorders: No Hx Sexually Transmitted Disorders: No Hx Renal Disease (ESRD): No Hx Thyroid Disease: No Hx Human Immunodeficiency Virus (HIV): No Hx Hepatitis C: No Hx Depression: Yes Hx Suicide Attempt: No Hx Bipolar Disorder: No Hx Schizophrenia: No - Patient Surgical History Past Surgical History: Yes Hx Cataract Extraction: Yes (Bilateral cataract sx in 2015) Hx Cardiac Surgery: No Hx Lung Surgery: No Hx Breast Surgery: No Hx Breast Biopsy: No Hx Abdominal Surgery: No Hx Appendectomy: No Hx Cholecystectomy: No Hx Genitourinary Surgery: No Hx Section: No Hx Orthopedic Surgery: Yes Other Surgical History: L foot bunionectomy Anesthesia Reaction: No - PPD History Previous Implant?: Yes Documented Results: Negative w/proof Implanted On Prior [facility] Admission?: Yes Date: 07/31/17 PPD to be Administered?: No - Smoking Cessation Smoking history: Current every day smoker Have you smoked in the past 12 months: Yes Aproximately how many cigarettes per day: 20 Cigars Per Day: 0 Hx Chewing Tobacco Use: No Initiated information on smoking cessation: Yes 'Breaking Loose' booklet given: 10/25/17 - Substance & Tx. History Hx Alcohol Use: Yes Hx Substance Use: Yes Substance Use Type: Alcohol, Cocaine Hx Substance Use Treatment: Yes (07/2017 [facility] - Substances Abused Cocaine Route: Inhalation Frequency: 3-6 times per week Amount used: $50 Age of first use: 27 Date of Last Use: 10/23/17 Alcohol-`vodka/beer Route: Oral Frequency: Daily Amount used: 2 pts./2-6 pks. Age of first use: 27 Date of Last Use: 10/25/17 Family Disease History - Family Disease History Family Disease History: Heart Disease: Father (HTN), Mother (HTN), Brother (HTN) Admission Physical Exam S - Vital Signs Vital Signs: Vital Signs - 24 hr 10/25/17 11:56 Temperature 96 F L Pulse Rate 66 Respiratory 20 Rate Blood Pressure 153/92 - Physical General Appearance: Yes: Appropriately Dressed, Mild Distress, Tremorous, Irritable, Sweating, Anxious HEENTM: Yes: Hearing grossly Normal, Normocephalic, Normal Voice Respiratory: Yes: Chest Non-Tender, Lungs Clear, Normal Breath Sounds, No Respiratory Distress, No Accessory Muscle Use Neck: Yes: Supple, Trachea in good position Breast: Yes: Breasts Symetrical, No Discharge Cardiology: Yes: Regular Rhythm, Regular Rate, S1, S2 Abdominal: Yes: Non Tender, Flat, Increased Bowel Sounds Genitourinary: Yes: Within Normal Limits Back: Yes: Normal Inspection Musculoskeletal: Yes: full range of Motion, Gait Steady, Back pain, Muscle Pain (left toe) Extremities: Yes: Normal Inspection, Normal Range of Motion, Non-Tender, Tremors , Other (left toe deformed) Neurological: Yes: Fully Oriented, Alert, Motor Strength 5/5, Normal Response, Depressed Affect Integumentary: Yes: Warm Lymphatic: Yes: Within Normal Limits - Diagnostic (1) Alcohol dependence with uncomplicated withdrawal Current Visit: Yes Status: Acute (2) Nicotine dependence Current Visit: Yes Status: Acute Qualifiers: Nicotine product type: cigarettes Substance use status: in withdrawal Qualified Code(s): F17.213 - Nicotine dependence, cigarettes, with withdrawal (3) HTN (hypertension) Current Visit: Yes Status: Chronic Qualifiers: Hypertension type: essential hypertension Qualified Code(s): I10 - Essential (primary) hypertension (4) Type II diabetes mellitus Current Visit: Yes Status: Chronic Qualifiers: Diabetes mellitus long term care pharmacist insulin use: without long term care pharmacist use Diabetes mellitus complication status: without complication Qualified Code(s): E11.9 - Type 2 diabetes mellitus without complications Cleared for Admission S - Detox or Rehab [facility] Level of Care: Medically Managed Detox Regimen/Protocol: Librium [facility] Breath Alcohol Content Breath Alcohol Content: 0 Urine Drug Screen - Control Is Test Valid: Yes - Results Drug Screen Negative: No Urine Drug Screen Results: CHRIS-Cocaine
[2017-10-25] MEDS ORDERED: MAGNESIUM CITRATE 300 ML BOTTLE PO PRN (14:13)
[2017-10-25] MEDS ORDERED: MENTHOL/PHENOL 1 EACH UD MM PRN (14:13)
[2017-10-25] MEDS ORDERED: guaiFENesin/D-METHORPHAN HB 10 ML UNIT-DOSE CUPS PO PRN (14:13)
[2017-10-25] MEDS ORDERED: MAG HYDROX/AL HYDROX/SIMETH 30 ML UNIT-DOSE CUP PO PRN (14:13)
[2017-10-25] MEDS ORDERED: chlordiazePOXIDE HCL 25 MG CAPSULE PO PRN (14:13)
[2017-10-25] MEDS ORDERED: MAGNESIUM HYDROX 2400MG/30ML ORAL SUSPENSION 30 ML CUP PO PRN (14:13)
[2017-10-25] MEDS ORDERED: IBUPROFEN 400 MG TABLET (FP) PO PRN (14:13)
[2017-10-25] MEDS ORDERED: ACETAMINOPHEN 325 MG TABLET (FP) PO PRN (14:13)
[2017-10-25] MEDS ORDERED: P-EPHED 60MG/TRIPROLIDI 2.5MG TABLET PO PRN (14:13)
[2017-10-25] MEDS ORDERED: NICOTINE POLACRILEX 4 MG GUM BC PRN (14:13)
[2017-10-25] MEDS ORDERED: LOPERAMIDE HCL 2 MG CAPSULE PO PRN (14:13)
[2017-10-25] MEDS: GABAPENTIN 300 MG CAPSULE (FP) PO SCH ×2 (15:36→22:22)
[2017-10-25] MEDS: NICOTINE 21 MG/24 HOURS TOPICAL PATCH TD SCH (15:38)
[2017-10-25] MEDS: INSULIN SLIDING SCALE (NOVOLOG) 1 VIAL SQ SCH (17:32)
--- NOTE | 2017-10-25 18:50 | PN ---
BHS Progress Note Note: Patient with small scratch on face. Bacitracin top PRN Continue to monitor
[2017-10-25 20:15] LABS: MCH 32.2 pg (25.7-33.7); MCHC 34.7 g/dl (32.0-35.9); MEAN CELL VOLUME 92.8 fl (80-96); MEAN PLT VOLUME 8.4 fl (7.5-11.1); PLATELET COUNT 227 K/MM3 (134-434); RBC 4.64 M/mm3 (4.00-5.60); RDW 13.2 % (11.9-15.9); WHITE BLOOD COUNT 3.9 K/mm3 (4.0-10.0)
[2017-10-25 20:37] LABS: ALBUMIN 3.7 g/dl (3.4-5.0); ALK PHOS 72 U/L (45-117); ANION GAP 2 (8-16); BILIRUBIN,TOTAL 0.3 mg/dL (0.2-1.0); BLOOD UREA NITROGEN 11 mg/dL (7-18); CALCIUM 8.6 mg/dL (8.5-10.1); CHLORIDE 104 mmol/L (98-107); CO2 32 mmol/L (21-32); CREATININE 1.3 mg/dL (0.7-1.3); GLUCOSE,RANDOM 119 mg/dL (74-106); SGOT/AST 19 U/L (15-37); SGPT/ALT 17 U/L (12-78); SODIUM 138 mmol/L (136-145); TOT PROT 7.4 g/dl (6.4-8.2)
[2017-10-25] MEDS ORDERED: FLUTICASONE PROP 0.05% 16 GM NASAL SPRAY NS SCH (21:00)
[2017-10-25] MEDS ORDERED: MELATONIN 5 MG TABLETS PO PRN (22:00)
[2017-10-25] MEDS: BACITRACIN 0.9 GM PACKET TP SCH ×2 (22:22→22:36)
[2017-10-25] MEDS: chlordiazePOXIDE HCL 25 MG CAPSULE PO SCH (22:22)
[2017-10-25] MEDS: THIAMINE HCL 100 MG TABLET (FP) PO SCH (22:22)
[2017-10-25 23:03] LABS: URINE APPEARANCE CLEAR; URINE BILIRUBIN NEGATIVE (<2.0 mg/dL); URINE COLOR LTYELLOW; URINE GLUCOSE (UA) NEGATIVE (NEGATIVE); URINE KETONE NEGATIVE (NEGATIVE); URINE LEUK ESTERASE NEGATIVE (NEGATIVE); URINE NITRITE NEGATIVE (NEGATIVE); URINE PROTEIN NEGATIVE (NEGATIVE); URINE UROBILINOGEN NEGATIVE mg/dL (0.2-1.0)
[2017-10-26] MEDS: GABAPENTIN 300 MG CAPSULE (FP) PO SCH ×3 (05:48→22:24)
[2017-10-26] MEDS: chlordiazePOXIDE HCL 25 MG CAPSULE PO SCH ×4 (05:48→22:24)
[2017-10-26] MEDS: SODIUM CHLORIDE NASAL SPRAY 44 ML BOTTLE NS PRN (05:50)
[2017-10-26] MEDS: INSULIN SLIDING SCALE (NOVOLOG) 1 VIAL SQ SCH ×2 (07:17→17:15)
[2017-10-26] MEDS: LISINOPRIL 20 MG TABLET (FP) PO SCH (10:09)
[2017-10-26] MEDS: ASPIRIN 81 MG CHEWABLE TABLETS PO SCH (10:09)
[2017-10-26] MEDS: HYDROCHLOROTHIAZIDE 25 MG TABLET (FP) PO SCH (10:09)
[2017-10-26] MEDS: NICOTINE 21 MG/24 HOURS TOPICAL PATCH TD SCH (10:09)
[2017-10-26] MEDS: BACITRACIN 0.9 GM PACKET TP SCH ×2 (10:09→22:23)
[2017-10-26] MEDS: PRENATAL VITAMINS W/ FOLIC ACID TABLET (FP) PO SCH (10:09)
--- NOTE | 2017-10-26 10:41 | PN ---
[facility] CIWA - CIWA Score Nausea/Vomitin-Mild Nausea/No Vomiting Muscle Tremors: 4-Moderate,w/Arms Extend Anxiety: 4-Mod. Anxious/Guarded Agitation: 4-Moderately Restless Paroxysmal Sweats: 1-Minimal Palms Moist Orientation: 0-Oriented Tacttile Disturbances: 0-None Auditory Disturbances: 0-None Visual Disturbances: 0-None Headache: 0-None Present CIWA-Ar Total Score: 14 S Progress Note (SOAP) Subjective: sweat tremor anxiety restlessness mild gi distress Objective: 10/26/17 10:41 Vital Signs Temperature 96.8 F L 10/26/17 10:34 Pulse Rate 70 10/26/17 10:34 Respiratory Rate 16 10/26/17 10:34 Blood Pressure 126/71 10/26/17 10:34 O2 Sat by Pulse Oximetry (%) Laboratory Last Values WBC 3.9 K/mm3 (4.0-10.0) L 10/25/17 14:00 RBC 4.64 M/mm3 (4.00-5.60) 10/25/17 14:00 Hgb 15.0 GM/dL (11.7-16.9) 10/25/17 14:00 Hct 43.0 % (35.4-49) 10/25/17 14:00 MCV 92.8 fl (80-96) 10/25/17 14:00 MCH 32.2 pg (25.7-33.7) 10/25/17 14:00 MCHC 34.7 g/dl (32.0-35.9) 10/25/17 14:00 RDW 13.2 % (11.9-15.9) 10/25/17 14:00 Plt Count 227 K/MM3 (134-434) 10/25/17 14:00 MPV 8.4 fl (7.5-11.1) 10/25/17 14:00 Sodium 138 mmol/L (136-145) 10/25/17 14:00 Potassium 4.0 mmol/L (3.5-5.1) 10/25/17 14:00 Chloride 104 mmol/L (98-107) 10/25/17 14:00 Carbon Dioxide 32 mmol/L (21-32) 10/25/17 14:00 Anion Gap 2 (8-16) L 10/25/17 14:00 BUN 11 mg/dL (7-18) 10/25/17 14:00 Creatinine 1.3 mg/dL (0.7-1.3) 10/25/17 14:00 Creat Clearance w eGFR 57.31 (>60) 10/25/17 14:00 POC Glucometer 112 UNITS (80-120) 10/26/17 05:34 Random Glucose 119 mg/dL (74-106) H 10/25/17 14:00 Calcium 8.6 mg/dL (8.5-10.1) 10/25/17 14:00 Total Bilirubin 0.3 mg/dL (0.2-1.0) D 10/25/17 14:00 AST 19 U/L (15-37) 10/25/17 14:00 ALT 17 U/L (12-78) 10/25/17 14:00 Alkaline Phosphatase 72 U/L (45-117) 10/25/17 14:00 Total Protein 7.4 g/dl (6.4-8.2) 10/25/17 14:00 Albumin 3.7 g/dl (3.4-5.0) 10/25/17 14:00 Urine Color Ltyellow 10/25/17 23:00 Urine Appearance Clear 10/25/17 23:00 Urine pH 6.0 (5.0-8.0) 10/25/17 23:00 Ur Specific [place] 1.011 (1.001-1.035) 10/25/17 23:00 Urine Protein Negative (NEGATIVE) 10/25/17 23:00 Urine Glucose (UA) Negative (NEGATIVE) 10/25/17 23:00 Urine Ketones Negative (NEGATIVE) 10/25/17 23:00 Urine Blood Negative (NEGATIVE) 10/25/17 23:00 Urine Nitrite Negative (NEGATIVE) 10/25/17 23:00 Urine Bilirubin Negative (<2.0 mg/dL) 10/25/17 23:00 Urine Urobilinogen Negative mg/dL (0.2-1.0) 10/25/17 23:00 Ur Leukocyte Esterase Negative (NEGATIVE) 10/25/17 23:00 lab noted Assessment: 10/26/17 10:41 withdrawal sx Plan: continue detox
--- NOTE | 2017-10-26 11:47 | CONSULT ---
[facility] Psychiatric Consult - Data Date of interview: 10/26/00 Admission source: [facility] Identifying data: Patient is a 57 year old male, father of three, unemployed, receiving food stamps, and resides with and children. This is one of multiple admissions for patient. Pt. admitted to for alcohol and cocaine dependence. Substance Abuse History: Following information confirmed with Mr. Hu: Smoking Cessation. Smoking history: Current every day smoker. Have you smoked in the past 12 months: Yes. Aproximately how many cigarettes per day: 20. Cigars Per Day: 0. Hx Chewing Tobacco Use: No. Initiated information on smoking cessation: Yes. 'Breaking Loose' booklet given: 10/25/17. - Substance & Tx. History. Hx Alcohol Use: Yes. Hx Substance Use: Yes. Substance Use Type : Alcohol, Cocaine. Hx Substance Use Treatment: Yes (07/2017 [facility]). - Substances Abused. Cocaine. Route: Inhalation. Frequency: 3-6 times per week. Amount used: $50. Age of first use: 27. Date of Last Use: 10/23/17. * * Alcohol-`vodka/beer. Route: Oral. Frequency: Daily. Amount used: 2 pts./2- 6 pks. Age of first use: 27. Date of Last Use: 10/25/17 Medical History: Hypertension, hypercholesterolemia, diabetes, bilateral cataract sx in 2014, left foot bunionectomy Psychiatric History: Pt. denies h/o psychiatric hospitalizations. Patient reports seeing a psychiatrist at [facility] approximately 18 months ago for depression and anxiety. Pt. unable to recall which medication he was prescribed. Pt. is nonadherent to medications and outpatient care. Pt. denies h /o suicide attempt. Physical/Sexual Abuse/Trauma History: Denies. Mental Status Exam - Mental Status Exam Alert and Oriented to: Time, Place, Person Cognitive Function: Good Patient Appearance: Well Groomed Mood: Hopeful Affect: Mood Congruent Patient Behavior: Appropriate, Cooperative Speech Pattern: Clear, Appropriate Voice Loudness: Normal Thought Process: Goal Oriented Thought Disorder: Not Present Hallucinations: Denies Suicidal Ideation: Denies Homicidal Ideation: Denies Insight/Judgement: Poor Sleep: Poorly Appetite: Fair Muscle strength/Tone: Normal Gait/Station: Normal Psychiatric Findings - Problem List ([place] 1, 2,3) (1) Alcohol dependence with uncomplicated withdrawal Current Visit: Yes Status: Acute (2) Cocaine dependence, uncomplicated Current Visit: Yes Status: Acute (3) Insomnia Current Visit: Yes Status: Acute (4) Nicotine dependence Current Visit: Yes Status: Chronic Qualifiers: Nicotine product type: cigarettes Substance use status: in withdrawal Qualified Code(s): F17.213 - Nicotine dependence, cigarettes, with withdrawal - Initial Treatment Plan Initial Treatment Plan: Psychoeducation provided. Detoxification in progress. Ambien 10mg qhs ordered. Benefits and side effects discussed. Pt. made aware of the risk of parasomnia. Will continue to monitor.
[2017-10-26] MEDS: THIAMINE HCL 100 MG TABLET (FP) PO SCH (22:25)
[2017-10-26] MEDS: ZOLPIDEM TARTRATE 10 MG TABLET (PARK CARE ONLY) PO PRN (22:28)
[2017-10-27] MEDS: GABAPENTIN 300 MG CAPSULE (FP) PO SCH ×3 (05:12→22:24)
[2017-10-27] MEDS: chlordiazePOXIDE HCL 25 MG CAPSULE PO SCH ×3 (05:12→17:19)
[2017-10-27] MEDS: SODIUM CHLORIDE NASAL SPRAY 44 ML BOTTLE NS PRN ×2 (05:12→22:40)
[2017-10-27] MEDS: INSULIN SLIDING SCALE (NOVOLOG) 1 VIAL SQ SCH ×2 (06:34→17:32)
--- NOTE | 2017-10-27 09:26 | PN ---
S CIWA - CIWA Score Nausea/Vomitin-No Nausea/No Vomiting Muscle Tremors: 3 Anxiety: 3 Agitation: 3 Paroxysmal Sweats: 1-Minimal Palms Moist Orientation: 0-Oriented Tacttile Disturbances: 1-Very Mild Itch/Numbness Auditory Disturbances: 0-None Visual Disturbances: 0-None Headache: 1-Very Mild CIWA-Ar Total Score: 12 BHS Progress Note (SOAP) Subjective: sweat tremor trouble sleeping at night chronic back pain released by exercising Objective: 10/27/17 09:25 Vital Signs Temperature 96.6 F L 10/27/17 06:08 Pulse Rate 82 10/27/17 06:08 Respiratory Rate 18 10/27/17 06:08 Blood Pressure 139/73 10/27/17 06:08 O2 Sat by Pulse Oximetry (%) Laboratory Last Values WBC 3.9 K/mm3 (4.0-10.0) L 10/25/17 14:00 RBC 4.64 M/mm3 (4.00-5.60) 10/25/17 14:00 Hgb 15.0 GM/dL (11.7-16.9) 10/25/17 14:00 Hct 43.0 % (35.4-49) 10/25/17 14:00 MCV 92.8 fl (80-96) 10/25/17 14:00 MCH 32.2 pg (25.7-33.7) 10/25/17 14:00 MCHC 34.7 g/dl (32.0-35.9) 10/25/17 14:00 RDW 13.2 % (11.9-15.9) 10/25/17 14:00 Plt Count 227 K/MM3 (134-434) 10/25/17 14:00 MPV 8.4 fl (7.5-11.1) 10/25/17 14:00 Sodium 138 mmol/L (136-145) 10/25/17 14:00 Potassium 4.0 mmol/L (3.5-5.1) 10/25/17 14:00 Chloride 104 mmol/L (98-107) 10/25/17 14:00 Carbon Dioxide 32 mmol/L (21-32) 10/25/17 14:00 Anion Gap 2 (8-16) L 10/25/17 14:00 BUN 11 mg/dL (7-18) 10/25/17 14:00 Creatinine 1.3 mg/dL (0.7-1.3) 10/25/17 14:00 Creat Clearance w eGFR 57.31 (>60) 10/25/17 14:00 POC Glucometer 188 UNITS (80-120) 10/27/17 05:14 Random Glucose 119 mg/dL (74-106) H 10/25/17 14:00 Calcium 8.6 mg/dL (8.5-10.1) 10/25/17 14:00 Total Bilirubin 0.3 mg/dL (0.2-1.0) D 10/25/17 14:00 AST 19 U/L (15-37) 10/25/17 14:00 ALT 17 U/L (12-78) 10/25/17 14:00 Alkaline Phosphatase 72 U/L (45-117) 10/25/17 14:00 Total Protein 7.4 g/dl (6.4-8.2) 10/25/17 14:00 Albumin 3.7 g/dl (3.4-5.0) 10/25/17 14:00 Urine Color Ltyellow 10/25/17 23:00 Urine Appearance Clear 10/25/17 23:00 Urine pH 6.0 (5.0-8.0) 10/25/17 23:00 Ur Specific [place] 1.011 (1.001-1.035) 10/25/17 23:00 Urine Protein Negative (NEGATIVE) 10/25/17 23:00 Urine Glucose (UA) Negative (NEGATIVE) 10/25/17 23:00 Urine Ketones Negative (NEGATIVE) 10/25/17 23:00 Urine Blood Negative (NEGATIVE) 10/25/17 23:00 Urine Nitrite Negative (NEGATIVE) 10/25/17 23:00 Urine Bilirubin Negative (<2.0 mg/dL) 10/25/17 23:00 Urine Urobilinogen Negative mg/dL (0.2-1.0) 10/25/17 23:00 Ur Leukocyte Esterase Negative (NEGATIVE) 10/25/17 23:00 RPR Titer Nonreactive (NONREACTIVE) 10/25/17 14:00 HIV 1&2 Antibody Screen Negative 10/25/17 08:15 HIV P24 Antigen Negative 10/25/17 08:15 lab noted Assessment: 10/27/17 09:25 withdrawal sx Plan: continue detox
--- NOTE | 2017-10-27 09:48 | EKG ---
Test Reason : Blood Pressure : / mmHG Vent. Rate : 064 BPM Atrial Rate : 064 BPM P-R Int : 134 ms QRS Dur : 088 ms QT Int : 400 ms P-R-T Axes : 049 040 004 degrees QTc Int : 412 ms NORMAL SINUS RHYTHM NONSPECIFIC ST AND T WAVE ABNORMALITY ABNORMAL ECG WHEN COMPARED WITH ECG OF 29-JUL-2017 15:08, NO SIGNIFICANT CHANGE WAS FOUND Confirmed by LUIZA ZAMAN MD ([id number]) on 10/27/2017 9:48:04 AM Referred By: Confirmed By:LUIZA ZAMAN MD
[2017-10-27] MEDS: ASPIRIN 81 MG CHEWABLE TABLETS PO SCH (10:43)
[2017-10-27] MEDS: BACITRACIN 0.9 GM PACKET TP SCH ×2 (10:43→22:24)
[2017-10-27] MEDS: PRENATAL VITAMINS W/ FOLIC ACID TABLET (FP) PO SCH (10:43)
[2017-10-27] MEDS: HYDROCHLOROTHIAZIDE 25 MG TABLET (FP) PO SCH (10:43)
[2017-10-27] MEDS: LISINOPRIL 20 MG TABLET (FP) PO SCH (10:43)
[2017-10-27] MEDS: NICOTINE 21 MG/24 HOURS TOPICAL PATCH TD SCH (10:45)
[2017-10-27] MEDS: ZOLPIDEM TARTRATE 10 MG TABLET (PARK CARE ONLY) PO PRN (22:24)
[2017-10-27] MEDS: THIAMINE HCL 100 MG TABLET (FP) PO SCH (22:24)
[2017-10-27] MEDS: chlordiazePOXIDE 5 MG CAPSULE PO SCH (22:24)
[2017-10-28] MEDS: chlordiazePOXIDE 5 MG CAPSULE PO SCH ×3 (05:15→18:01)
[2017-10-28] MEDS: GABAPENTIN 300 MG CAPSULE (FP) PO SCH ×3 (05:15→22:25)
[2017-10-28] MEDS: INSULIN SLIDING SCALE (NOVOLOG) 1 VIAL SQ SCH ×2 (07:05→18:05)
[2017-10-28] MEDS: SODIUM CHLORIDE NASAL SPRAY 44 ML BOTTLE NS PRN ×3 (07:22→22:26)
[2017-10-28] MEDS: BACITRACIN 0.9 GM PACKET TP SCH ×2 (10:08→22:25)
[2017-10-28] MEDS: PRENATAL VITAMINS W/ FOLIC ACID TABLET (FP) PO SCH (10:08)
[2017-10-28] MEDS: HYDROCHLOROTHIAZIDE 25 MG TABLET (FP) PO SCH (10:08)
[2017-10-28] MEDS: ASPIRIN 81 MG CHEWABLE TABLETS PO SCH (10:08)
[2017-10-28] MEDS: LISINOPRIL 20 MG TABLET (FP) PO SCH (10:08)
[2017-10-28] MEDS: NICOTINE 21 MG/24 HOURS TOPICAL PATCH TD SCH (10:09)
--- NOTE | 2017-10-28 13:54 | PN ---
BHS Progress Note (SOAP) Subjective: feeling better no tremor less sweat social with peers in day room Objective: 10/28/17 13:53 Vital Signs Temperature 97.5 F L 10/28/17 10:00 Pulse Rate 78 10/28/17 10:00 Respiratory Rate 18 10/28/17 10:00 Blood Pressure 107/81 10/28/17 10:00 O2 Sat by Pulse Oximetry (%) Laboratory Last Values WBC 3.9 K/mm3 (4.0-10.0) L 10/25/17 14:00 RBC 4.64 M/mm3 (4.00-5.60) 10/25/17 14:00 Hgb 15.0 GM/dL (11.7-16.9) 10/25/17 14:00 Hct 43.0 % (35.4-49) 10/25/17 14:00 MCV 92.8 fl (80-96) 10/25/17 14:00 MCH 32.2 pg (25.7-33.7) 10/25/17 14:00 MCHC 34.7 g/dl (32.0-35.9) 10/25/17 14:00 RDW 13.2 % (11.9-15.9) 10/25/17 14:00 Plt Count 227 K/MM3 (134-434) 10/25/17 14:00 MPV 8.4 fl (7.5-11.1) 10/25/17 14:00 Sodium 138 mmol/L (136-145) 10/25/17 14:00 Potassium 4.0 mmol/L (3.5-5.1) 10/25/17 14:00 Chloride 104 mmol/L (98-107) 10/25/17 14:00 Carbon Dioxide 32 mmol/L (21-32) 10/25/17 14:00 Anion Gap 2 (8-16) L 10/25/17 14:00 BUN 11 mg/dL (7-18) 10/25/17 14:00 Creatinine 1.3 mg/dL (0.7-1.3) 10/25/17 14:00 Creat Clearance w eGFR 57.31 (>60) 10/25/17 14:00 POC Glucometer 118 UNITS (80-120) 10/28/17 05:17 Random Glucose 119 mg/dL (74-106) H 10/25/17 14:00 Calcium 8.6 mg/dL (8.5-10.1) 10/25/17 14:00 Total Bilirubin 0.3 mg/dL (0.2-1.0) D 10/25/17 14:00 AST 19 U/L (15-37) 10/25/17 14:00 ALT 17 U/L (12-78) 10/25/17 14:00 Alkaline Phosphatase 72 U/L (45-117) 10/25/17 14:00 Total Protein 7.4 g/dl (6.4-8.2) 10/25/17 14:00 Albumin 3.7 g/dl (3.4-5.0) 10/25/17 14:00 Urine Color Ltyellow 10/25/17 23:00 Urine Appearance Clear 10/25/17 23:00 Urine pH 6.0 (5.0-8.0) 10/25/17 23:00 Ur Specific [place] 1.011 (1.001-1.035) 10/25/17 23:00 Urine Protein Negative (NEGATIVE) 10/25/17 23:00 Urine Glucose (UA) Negative (NEGATIVE) 10/25/17 23:00 Urine Ketones Negative (NEGATIVE) 10/25/17 23:00 Urine Blood Negative (NEGATIVE) 10/25/17 23:00 Urine Nitrite Negative (NEGATIVE) 10/25/17 23:00 Urine Bilirubin Negative (<2.0 mg/dL) 10/25/17 23:00 Urine Urobilinogen Negative mg/dL (0.2-1.0) 10/25/17 23:00 Ur Leukocyte Esterase Negative (NEGATIVE) 10/25/17 23:00 RPR Titer Nonreactive (NONREACTIVE) 10/25/17 14:00 HIV 1&2 Antibody Screen Negative 10/25/17 08:15 HIV P24 Antigen Negative 10/25/17 08:15 lab noted Assessment: 10/28/17 13:53 mild withdrawal sx Plan: medically supervised detox
[2017-10-28] MEDS: THIAMINE HCL 100 MG TABLET (FP) PO SCH (22:25)
[2017-10-28] MEDS: ZOLPIDEM TARTRATE 10 MG TABLET (PARK CARE ONLY) PO PRN (22:25)
[2017-10-28] MEDS: chlordiazePOXIDE HCL 10 MG CAPSULE PO SCH (22:58)
[2017-10-29] MEDS: chlordiazePOXIDE HCL 10 MG CAPSULE PO SCH (06:03)
[2017-10-29] MEDS: GABAPENTIN 300 MG CAPSULE (FP) PO SCH (06:03)
[2017-10-29] MEDS: SODIUM CHLORIDE NASAL SPRAY 44 ML BOTTLE NS PRN (06:03)
[2017-10-29] MEDS: INSULIN SLIDING SCALE (NOVOLOG) 1 VIAL SQ SCH (07:00)
[2017-10-29 07:18] VITALS: BP 139/69; PULSE 74; TEMP 97.6
--- NOTE | 2017-10-29 09:34 | DS ---
[facility] Detox Discharge Summary Admission Date: 10/25/17 Discharge Date: 10/29/17 - History Present History: Alcohol Dependence Additional Comments: 57 years old male admitted on 10/25/17 for alcohol withdrawal sx completed alcohol detox regimen tolerated well denies alcohol withdrawal sx - Physical Exam Results Vital Signs: Vital Signs Temperature 97.6 F 10/29/17 07:17 Pulse Rate 74 10/29/17 07:17 Respiratory Rate 16 10/29/17 07:17 Blood Pressure 139/69 10/29/17 07:17 O2 Sat by Pulse Oximetry (%) Pertinent Admission Physical Exam Findings: withdrawal sx Vital Signs Temperature 97.6 F 10/29/17 07:17 Pulse Rate 74 10/29/17 07:17 Respiratory Rate 16 10/29/17 07:17 Blood Pressure 139/69 10/29/17 07:17 O2 Sat by Pulse Oximetry (%) Laboratory Last Values WBC 3.9 K/mm3 (4.0-10.0) L 10/25/17 14:00 RBC 4.64 M/mm3 (4.00-5.60) 10/25/17 14:00 Hgb 15.0 GM/dL (11.7-16.9) 10/25/17 14:00 Hct 43.0 % (35.4-49) 10/25/17 14:00 MCV 92.8 fl (80-96) 10/25/17 14:00 MCH 32.2 pg (25.7-33.7) 10/25/17 14:00 MCHC 34.7 g/dl (32.0-35.9) 10/25/17 14:00 RDW 13.2 % (11.9-15.9) 10/25/17 14:00 Plt Count 227 K/MM3 (134-434) 10/25/17 14:00 MPV 8.4 fl (7.5-11.1) 10/25/17 14:00 Sodium 138 mmol/L (136-145) 10/25/17 14:00 Potassium 4.0 mmol/L (3.5-5.1) 10/25/17 14:00 Chloride 104 mmol/L (98-107) 10/25/17 14:00 Carbon Dioxide 32 mmol/L (21-32) 10/25/17 14:00 Anion Gap 2 (8-16) L 10/25/17 14:00 BUN 11 mg/dL (7-18) 10/25/17 14:00 Creatinine 1.3 mg/dL (0.7-1.3) 10/25/17 14:00 Creat Clearance w eGFR 57.31 (>60) 10/25/17 14:00 POC Glucometer 120 UNITS (80-120) 10/28/17 16:25 Random Glucose 119 mg/dL (74-106) H 10/25/17 14:00 Calcium 8.6 mg/dL (8.5-10.1) 10/25/17 14:00 Total Bilirubin 0.3 mg/dL (0.2-1.0) D 10/25/17 14:00 AST 19 U/L (15-37) 10/25/17 14:00 ALT 17 U/L (12-78) 10/25/17 14:00 Alkaline Phosphatase 72 U/L (45-117) 10/25/17 14:00 Total Protein 7.4 g/dl (6.4-8.2) 10/25/17 14:00 Albumin 3.7 g/dl (3.4-5.0) 10/25/17 14:00 Urine Color Ltyellow 10/25/17 23:00 Urine Appearance Clear 10/25/17 23:00 Urine pH 6.0 (5.0-8.0) 10/25/17 23:00 Ur Specific [place] 1.011 (1.001-1.035) 10/25/17 23:00 Urine Protein Negative (NEGATIVE) 10/25/17 23:00 Urine Glucose (UA) Negative (NEGATIVE) 10/25/17 23:00 Urine Ketones Negative (NEGATIVE) 10/25/17 23:00 Urine Blood Negative (NEGATIVE) 10/25/17 23:00 Urine Nitrite Negative (NEGATIVE) 10/25/17 23:00 Urine Bilirubin Negative (<2.0 mg/dL) 10/25/17 23:00 Urine Urobilinogen Negative mg/dL (0.2-1.0) 10/25/17 23:00 Ur Leukocyte Esterase Negative (NEGATIVE) 10/25/17 23:00 RPR Titer Nonreactive (NONREACTIVE) 10/25/17 14:00 HIV 1&2 Antibody Screen Negative 10/25/17 08:15 HIV P24 Antigen Negative 10/25/17 08:15 lab noted - Treatment Hospital Course: Detox Protocol Followed, Detoxed Safely, Responded well, Discharged Condition Good, Rehab Referral Accepted Patient has Accepted a Rehab Referral to: [facility] - Medication Discharge Medications: Ambulatory Orders Aspirin [ASA -] 81 mg PO DAILY #30 tab.chew 08/01/17 Ibuprofen [Motrin -] 400 mg PO TID 10/25/17 Phenylephrine HCl [Nasal [place]] 2 spray NS DAILY 10/25/17 Gabapentin [Neurontin -] 300 mg PO Q8H #120 capsule 10/28/17 Hydrochlorothiazide [Hctz -] 25 mg PO DAILY #30 tablet 10/28/17 Lisinopril [Prinivil] 20 mg PO DAILY #30 tablet 10/28/17 metFORMIN HCL [Glucophage -] 850 mg PO BID #60 tablet 10/28/17 - Diagnosis (1) Alcohol dependence with uncomplicated withdrawal Current Visit: Yes Status: Acute (2) Nicotine dependence Current Visit: Yes Status: Acute Qualifiers: Nicotine product type: cigarettes Substance use status: in withdrawal Qualified Code(s): F17.213 - Nicotine dependence, cigarettes, with withdrawal (3) HTN (hypertension) Current Visit: Yes Status: Chronic Qualifiers: Hypertension type: essential hypertension Qualified Code(s): I10 - Essential (primary) hypertension (4) Type II diabetes mellitus Current Visit: Yes Status: Chronic Qualifiers: Diabetes mellitus assisted insulin use: without director long term care use Diabetes mellitus complication status: without complication Qualified Code(s): E11.9 - Type 2 diabetes mellitus without complications - AMA Did Patient Leave Against Medical Advice: No
== END 2017-10-29 07:15 | disposition home or self-care (01) | DRG 774 ==
LOC: YASAS 11:37 → Y6N 15:01
PROVIDERS: ADMIT Internal Medicine; ATTEND Internal Medicine
PROC: HZ2ZZZZ Detoxification Services for Substance Abuse Treatment (ICD-10-PCS; principal; 2017-10-25)
DX: F10.230 Alcohol dependence with withdrawal, uncomplicated (principal); F14.20 Cocaine dependence, uncomplicated; F17.213 Nicotine dependence, cigarettes, with withdrawal; F32.9 Major depressive disorder, single episode, unspecified; I10 Essential (primary) hypertension; G47.00 Insomnia, unspecified; E11.9 Type 2 diabetes mellitus without complications; Z79.84 Long term (current) use of oral hypoglycemic drugs; E78.00 Pure hypercholesterolemia, unspecified
CPT/HCPCS: 36415; 80053; 81003; 82962; 85027; 86593; 87389; 93005; 93010

== ENCOUNTER 2022-12-10 13:13 | Inpatient (IN) | payer OTHER ==
[2022-12-10 14:36] VITALS: BMI 25.5
[2022-12-10] MEDS ORDERED: BISMUTH SUBSALICYLATE 524 MG/30 ML PO PRN (16:03)
[2022-12-10] MEDS ORDERED: IBUPROFEN 600 MG TABLET (FP) PO PRN (16:03)
[2022-12-10] MEDS ORDERED: MAGNESIUM HYDROX 2400MG/30ML ORAL SUSPENSION 30 ML CUP PO PRN (16:03)
[2022-12-10] MEDS ORDERED: NICOTINE POLACRILEX 2 MG GUM BUC PRN (16:03)
[2022-12-10] MEDS ORDERED: P-EPHED 60MG/TRIPROLIDI 2.5MG TABLET PO PRN (16:03)
[2022-12-10] MEDS ORDERED: ACETAMINOPHEN 325 MG TABLET (FP) PO PRN (16:03)
[2022-12-10] MEDS ORDERED: ONDANSETRON *ODT* 4 MG TABLET SL PRN (16:03)
[2022-12-10] MEDS ORDERED: BENZONATATE 200 MG CAPSULE PO PRN (16:03)
[2022-12-10] MEDS ORDERED: IBUPROFEN 400 MG TABLET (FP) PO PRN (16:03)
[2022-12-10] MEDS ORDERED: MAG HYDROX/AL HYDROX/SIMETH 30 ML UNIT-DOSE CUP PO PRN (16:03)
[2022-12-10] MEDS ORDERED: LOPERAMIDE HCL 2 MG CAPSULE PO PRN (16:03)
[2022-12-10] MEDS ORDERED: BENZOCAINE/MENTHOL (CHLORASEPTIC ) LOZENGE MM PRN (16:03)
[2022-12-10] MEDS ORDERED: guaiFENesin 600 MG TABLET.ER (FP) PO PRN (16:03)
[2022-12-10] MEDS ORDERED: POLYETHYLENE GLYCOL (HEALTHYLAX) 3350 17 GM PACKET PO PRN (16:03)
[2022-12-10] MEDS ORDERED: DICYCLOMINE HCL 10 MG CAPSULE PO PRN (16:03)
[2022-12-10] MEDS: LIDOCAINE 5% TOPICAL PATCH TP SCH (18:05)
[2022-12-10] MEDS: MELATONIN 5 MG TABLETS PO SCH (22:33)
[2022-12-10] MEDS: THIAMINE HCL 100 MG TABLET (FP) PO SCH (22:33)
[2022-12-10] MEDS: hydrOXYzine PAMOATE 25 MG CAPSULE (FP) PO PRN (22:33)
[2022-12-10] MEDS: METHOCARBAMOL 500 MG TABLET PO PRN (22:33)
[2022-12-10] MEDS: LIDOCAINE PATCH REMOVAL MC SCH (22:33)
[2022-12-10] MEDS: NICOTINE 10 MG CARTRIDGE (INHALER) IH PRN (22:34)
[2022-12-11] MEDS: PRENATAL VITAMINS W/ FOLIC ACID TABLET (FP) PO SCH (10:19)
[2022-12-11] MEDS: METHOCARBAMOL 500 MG TABLET PO PRN ×2 (10:20→22:23)
[2022-12-11] MEDS: LIDOCAINE 5% TOPICAL PATCH TP SCH (10:20)
[2022-12-11] MEDS: LISINOPRIL 20 MG TABLET PO SCH (10:58)
[2022-12-11] MEDS: ASPIRIN 81 MG CHEWABLE TABLETS PO SCH (10:58)
[2022-12-11] MEDS: HYDROCHLOROTHIAZIDE 25 MG TABLET (FP) PO SCH (13:11)
[2022-12-11] MEDS: NICOTINE 10 MG CARTRIDGE (INHALER) IH PRN (17:33)
[2022-12-11] MEDS: THIAMINE HCL 100 MG TABLET (FP) PO SCH (22:22)
[2022-12-11] MEDS: MELATONIN 5 MG TABLETS PO SCH (22:23)
[2022-12-11] MEDS: hydrOXYzine PAMOATE 25 MG CAPSULE (FP) PO PRN (22:23)
[2022-12-11] MEDS: LIDOCAINE PATCH REMOVAL MC SCH (22:24)
[2022-12-12 10:05] VITALS: PULSE 69; RESP 17; TEMP 98.1
[2022-12-12] MEDS: PRENATAL VITAMINS W/ FOLIC ACID TABLET (FP) PO SCH (11:12)
[2022-12-12] MEDS: LISINOPRIL 20 MG TABLET PO SCH (11:12)
[2022-12-12] MEDS: ASPIRIN 81 MG CHEWABLE TABLETS PO SCH (11:12)
[2022-12-12] MEDS: LIDOCAINE 5% TOPICAL PATCH TP SCH (11:13)
[2022-12-12] MEDS: HYDROCHLOROTHIAZIDE 25 MG TABLET (FP) PO SCH (12:44)
[2022-12-12 13:20] VITALS: BP 159/95
== END 2022-12-12 13:40 | disposition home or self-care (01) | DRG 897 ==
LOC: YASAS 13:13 → Y6N 17:14
PROVIDERS: ADMIT Allergy & Immunology; ATTEND Surgery
PROC: HZ2ZZZZ Detoxification Services for Substance Abuse Treatment (ICD-10-PCS; principal; 2022-12-10)
DX: F14.20 Cocaine dependence, uncomplicated (principal); F10.10 Alcohol abuse, uncomplicated; F17.210 Nicotine dependence, cigarettes, uncomplicated; I10 Essential (primary) hypertension; E78.5 Hyperlipidemia, unspecified; E11.9 Type 2 diabetes mellitus without complications; Z79.84 Long term (current) use of oral hypoglycemic drugs
CPT/HCPCS: 82962; 87635